=== PATIENT | female | born 1985 | race Two or more races ===

== ENCOUNTER → 2016-05-21 | Outpatient (CLI) | payer OTHER ==
[2015-08-13 17:50] VITALS: BP 88/49
[~2016-05-21] MED LIST: FERR325T72 PO
--- NOTE | 2016-05-21 09:22 | RAD ---
Indication survey. Obstetrical ultrasound examination was performed. No prior ultrasound is available associated with this . There is a single fetus in vertex presentation. Cervical length of 3.8 cm is normal. The developing placenta is predominantly posterior and fundal. The amount of amniotic fluid appears normal. There was a 4 chambered heart. heart rate of 123 was documented. The stomach and bladder were unremarkable. The kidneys spine and brain appeared unremarkable. No definite anomalies were seen. Biparietal diameter of 7.2 cm, head circumference of 26.7 cm, abdominal circumference of 24.6 cm and femoral length of 5.3 cm are compatible with a gestational age of approximately 28 weeks 5 days. By sonographic analysis the expected date of confinement is 08/08/2016. The estimated weight is approximately 2 lbs. 13 oz. IMPRESSION: Single viable intrauterine fetus of approximately 28 weeks 5 days gestation
== END | disposition home or self-care (01) ==
LOC: US 08:08
PROVIDERS: ATTEND Obstetrics & Gynecology
DX: O26.843 Uterine size-date discrepancy, third trimester (principal); Z3A.28 28 weeks gestation of pregnancy
CPT/HCPCS: 76805

== ENCOUNTER 2016-07-21 18:39 | Inpatient (IN) | payer OTHER ==
[~2016-07-21] VITALS: Ht 144.8 cm; Wt 51.3 kg
[2016-07-21] MEDS ORDERED: TERBUTALINE 1 MG/ML VIAL. SQ PRN (19:00)
[2016-07-21] MEDS ORDERED: diphenhydrAMINE HCL 25 MG CAPSULE PO PRN ×2 (19:00→19:15)
[2016-07-21] MEDS ORDERED: OXYTOCIN 30 UNIT/500 ML PREMIX 500 ML IV PRN (19:00)
[2016-07-21] MEDS ORDERED: IBUPROFEN 800 MG TABLET. PO PRN (19:00)
[2016-07-21] MEDS ORDERED: LIDOCAINE 1% PF 30 ML VIAL. INJ PRN (19:00)
[2016-07-21] MEDS ORDERED: ONDANSETRON PF 4 MG/2 ML VIAL. IV PRN (19:00)
[2016-07-21] MEDS ORDERED: CITRIC ACID/SODIUM CITRATE 30 ML SOLUTION. PO PRN (19:00)
[2016-07-21] MEDS ORDERED: MAG HYDROX/ALUMINUM HYD/SIMETH 30 ML ORAL.SUSP PO PRN (19:00)
[2016-07-21] MEDS ORDERED: ACETAMINOPHEN 325 MG TABLET. PO PRN (19:00)
[2016-07-21] MEDS ORDERED: 0.9 % SODIUM CHLORIDE 10 ML DISP.SYRIN. IV PRN (19:00)
[2016-07-21] MEDS ORDERED: DINOPROSTONE 10 MG SUPP.VAG VG ONE (19:30)
[2016-07-21 19:50] VITALS: BP 103/69
[2016-07-21] MEDS: IV RINGERS,LACTATED 1000ML 1,000 ML IV SCH (19:55)
[2016-07-21 20:01] LABS: HEMATOCRIT 31.4 % (36.0-47.0); HEMOGLOBIN 10.7 g/dL (12.0-15.5); RED BLOOD COUNT 3.58 x10^6/uL (3.50-5.40); RED CELL DISTRIBUTION WIDTH 12.8 % (11.5-14.5); WHITE BLOOD COUNT 9.7 x10^3/uL (4.0-11.0)
[2016-07-22] MEDS: fentaNYL PF VIAL 100 MCG/2 ML VIAL IV PRN ×2 (00:45→04:08)
[2016-07-22] MEDS: IV RINGERS,LACTATED 1000ML 1,000 ML IV SCH ×2 (01:39→08:55)
[2016-07-22] MEDS: OXYTOCIN 30 UNIT/500 ML PREMIX 500 ML IV PRN ×2 (06:12→16:24)
--- NOTE | 2016-07-22 08:43 | PDOC1 ---
OB - History Hx of Present Care: Good Care Ultrasounds: Normal mid trimester US Obstetrical Complications: None Medical Complications: None Past Family/Social History * Past Medical, Surgical, Family and Obstetric Histories reviewed from chart. Blood Type: Unknown Rubella: Immune RPR/VDRL: Negative GBS Status: Negative HBsAG: Negative OB - Chief Complaint & HPI Date of Admission: Date of Admission: July 21, 2016 at 18:39 Chief Complaint/History : 2 Para: 1 EGA: 40 Reason for admission: induction of labor Indication for induction: other (oligohydramnios) Admission Nurse Assessment Rev: Yes Problems: OB - Admission Exam Physical Exam Vitals: VS - Last 72 Hours, by Label Date Time Temp Pulse Resp B/P (MAP) Pulse Ox O2 Delivery O2 Flow Rate FiO2 07/22/16 04:45 16 Room Air 07/22/16 04:08 18 Room Air 07/22/16 00:45 18 Room Air 07/21/16 19:50 99.3 100 18 103/69 (80) Room Air 99.3 HEENT: Normal Heart: Regular Rate Lungs: Clear Abdomen: Gravid, Non tender, Soft Extremities: Edema Reflexes: Normal Cervical Dilatation: 1cm Effacement: 50% Station: -3 Membranes: Intact Heart Rate: Normal Accelerations: Accelerations Present Decelerations: No decelerations Contractions on Admission: None Text A: 40 wks IUP Oligohydramnios P: Admit for IOL cervidil, then pitocin in am. CLAUDIA LOVELACE Jr, MD July 22, 2016 08:43
[2016-07-22] MEDS ORDERED: IV RINGERS,LACTATED 1000ML 1,000 ML IV SCH (09:08)
[2016-07-22] MEDS ORDERED: fentaNYL PF VIAL 100 MCG/2 ML VIAL EPI PRN (09:15)
[2016-07-22] MEDS ORDERED: NALOXONE 0.4 MG/ML VIAL. IV PRN (09:15)
[2016-07-22] MEDS ORDERED: ONDANSETRON PF 4 MG/2 ML VIAL. IV PRN (09:15)
[2016-07-22] MEDS ORDERED: L&D EPIDURAL CASSETTE 100 ML EP PRN (09:15)
[2016-07-22] MEDS ORDERED: ePHEDrine PF IN SALINE 50 MG/5 ML DISP.SYRIN IV PRN (09:15)
[2016-07-22] MEDS ORDERED: ROPIVacaine 0.2% IN 0.9%NACL PF 40 MG/20 ML DISP.SYRIN. EPI PRN (09:15)
--- NOTE | 2016-07-22 15:57 | PDOC ---
VAGINAL DELIVERY DATE DATE: 07/22/16 TIME: 15:54 : 2 Para: 1 EGA: 40 VAGINAL DELIVERY: VTX VACCUM ASSISTED: Yes NUMBER OF PULLS 3 NUMBER OF POP OFFS none MAXIMUM PRESSURE 600 mmhg PLACENTA: Spontaneous SEX: Male WEIGHT Weight [ 3160 gm] Nuchal Cord: No Amniotic Fluid: Clear PAIN: Epidural EPISIOTOMY: No EXTENSION: No EBL 300 ml COMPLICATIONS none Signs of Intrauterine Infectio: None Shoulder Dystocia: Yes, Initial traction, Pita Maneuver, Suprapubic Pressure, Other (poor maternal pushing efforts.) Problems: LCAUDIA LOVELACE Jr, MD July 22, 2016 15:57
[2016-07-22] MEDS ORDERED: IBUPROFEN 800 MG TABLET. PO PRN (16:00)
[2016-07-22] MEDS ORDERED: HYDROCORTISONE 1% TOPICAL OINTMENT 30GM TUBE. TP PRN (16:00)
[2016-07-22] MEDS ORDERED: oxyCODONE/APAP 5/325 1 TAB TABLET PO PRN (16:00)
[2016-07-22] MEDS ORDERED: ZOLPIDEM 5 MG TABLET. PO PRN (16:00)
[2016-07-22] MEDS ORDERED: DOCUSATE SODIUM 100 MG CAPSULE. PO PRN (16:00)
[2016-07-22] MEDS ORDERED: diphenhydrAMINE HCL 25 MG CAPSULE PO PRN (16:00)
[2016-07-22] MEDS ORDERED: MAG HYDROX/ALUMINUM HYD/SIMETH 30 ML ORAL.SUSP PO PRN (16:00)
[2016-07-22] MEDS ORDERED: MAGNESIUM HYDROXIDE 2,400 MG/30 ML ORAL.SUSP. PO PRN (16:00)
[2016-07-22] MEDS ORDERED: SIMETHICONE 80 MG TAB.CHEW PO PRN (16:00)
[2016-07-22] MEDS ORDERED: 0.9 % SODIUM CHLORIDE 10 ML DISP.SYRIN. IV PRN (16:00)
[2016-07-22] MEDS ORDERED: MMR per PROTOCOL. MC PRN (16:00)
[2016-07-22] MEDS ORDERED: OXYTOCIN 30 UNIT/500 ML PREMIX 500 ML IV PRN (16:00)
[2016-07-22] MEDS ORDERED: PHENYLEPH/MINERAL OIL/PETROLAT RECTAL OINTMENT 28GM TUBE. RC PRN (16:00)
[2016-07-22] MEDS ORDERED: ACETAMINOPHEN 325 MG TABLET. PO PRN (16:00)
[2016-07-22] MEDS ORDERED: BENZOCAINE 20% TOPICAL AEROSOL SPRAY 57GM CAN. TP PRN (16:00)
[2016-07-22 20:11] VITALS: BP 116/53
[2016-07-22 23:10] VITALS: BP 80/50
[2016-07-23 04:56] LABS: BASO % 0 % (0-3); EOS % 2 % (0-3); HEMATOCRIT 27.1 % (36.0-47.0); HEMOGLOBIN 9.5 g/dL (12.0-15.5); LYMPH # 1.7 x10^3/uL (1.0-4.8); LYMPH % 12 % (24-48); MEAN CORPUSCULAR HEMOGLOBIN 30 pg (25-35); MEAN CORPUSCULAR HGB CONC 35 g/dL (31-37); MEAN CORPUSCULAR VOLUME 87 fL (79-100); MONO % 9 % (0-9); NEUT % 78 % (31-73); PLATELET COUNT 163 x10^3/uL (140-400); RED BLOOD COUNT 3.12 x10^6/uL (3.50-5.40); RED CELL DISTRIBUTION WIDTH 13.2 % (11.5-14.5); WHITE BLOOD COUNT 14.3 x10^3/uL (4.0-11.0)
[2016-07-23 06:09] VITALS: BP 87/57
[2016-07-23 07:37] LABS: RPR REFLEX Non Reactive (Non Reactive)
[2016-07-23] MEDS: FERROUS SULFATE 325 MG TABLET. PO SCH ×2 (08:00→17:00)
[2016-07-23 10:35] VITALS: BP 95/62
--- NOTE | 2016-07-23 12:49 | PDOC ---
OB Progress Note Date of Service 07/23/16 Time of Evaluation 1245 Notes Pt. feeling well. Pain controlled. Lochia minimal. Lab Laboratory Tests Test 07/21/16 19:45 07/23/16 04:10 White Blood Count 9.7 x10^3/uL (4.0-11.0) 14.3 x10^3/uL (4.0-11.0) Red Blood Count 3.58 x10^6/uL (3.50-5.40) 3.12 x10^6/uL (3.50-5.40) Hemoglobin 10.7 g/dL (12.0-15.5) 9.5 g/dL (12.0-15.5) Hematocrit 31.4 % (36.0-47.0) 27.1 % (36.0-47.0) Mean Corpuscular Volume 88 fL (79-100) 87 fL (79-100) Mean Corpuscular Hemoglobin 30 pg (25-35) 30 pg (25-35) Mean Corpuscular Hemoglobin Concent 34 g/dL (31-37) 35 g/dL (31-37) Red Cell Distribution Width 12.8 % (11.5-14.5) 13.2 % (11.5-14.5) Platelet Count 182 x10^3/uL (140-400) 163 x10^3/uL (140-400) RPR Titer Additional Testing Non reactive (Non Reactive) Neutrophils (%) (Auto) 78 % (31-73) Lymphocytes (%) (Auto) 12 % (24-48) Monocytes (%) (Auto) 9 % (0-9) Eosinophils (%) (Auto) 2 % (0-3) Basophils (%) (Auto) 0 % (0-3) Neutrophils # (Auto) 11.1 x10^3uL (1.8-7.7) Lymphocytes # (Auto) 1.7 x10^3/uL (1.0-4.8) Monocytes # (Auto) 1.2 x10^3/uL (0.0-1.1) Eosinophils # (Auto) 0.2 x10^3/uL (0.0-0.7) Basophils # (Auto) 0.0 x10^3/uL (0.0-0.2) Laboratory Tests Test 07/23/16 04:10 White Blood Count 14.3 x10^3/uL (4.0-11.0) Red Blood Count 3.12 x10^6/uL (3.50-5.40) Hemoglobin 9.5 g/dL (12.0-15.5) Hematocrit 27.1 % (36.0-47.0) Mean Corpuscular Volume 87 fL (79-100) Mean Corpuscular Hemoglobin 30 pg (25-35) Mean Corpuscular Hemoglobin Concent 35 g/dL (31-37) Red Cell Distribution Width 13.2 % (11.5-14.5) Platelet Count 163 x10^3/uL (140-400) Neutrophils (%) (Auto) 78 % (31-73) Lymphocytes (%) (Auto) 12 % (24-48) Monocytes (%) (Auto) 9 % (0-9) Eosinophils (%) (Auto) 2 % (0-3) Basophils (%) (Auto) 0 % (0-3) Neutrophils # (Auto) 11.1 x10^3uL (1.8-7.7) Lymphocytes # (Auto) 1.7 x10^3/uL (1.0-4.8) Monocytes # (Auto) 1.2 x10^3/uL (0.0-1.1) Eosinophils # (Auto) 0.2 x10^3/uL (0.0-0.7) Basophils # (Auto) 0.0 x10^3/uL (0.0-0.2) Medications Current Medications Sodium Chloride (Normal Saline Flush) 3 ml QSHIFT PRN IV AFTER MEDS AND BLOOD DRAWS; Start 07/21/16 at 19:00; Stop 07/23/16 at 07:51; Status DC Ringer's Solution 1,000 ml @ 125 mls/hr Q8H IV Last administered on 07/22/16 08:55; Start 07/21/16 at 18:59; Stop 07/23/16 at 07:51; Status DC Fentanyl Citrate (Fentanyl 2ml Vial) 100 mcg PRN Q30MIN PRN IV Severe pain Last administered on 07/22/16 04:08; Start 07/21/16 at 19:00; Stop 07/23/16 at 07:51; Status DC Acetaminophen (Tylenol) 650 mg PRN Q6HRS PRN PO MILD PAIN / TEMP; Start at 19:00; Stop 07/23/16 at 07:51; Status DC Ondansetron HCl (Zofran) 4 mg PRN Q4HRS PRN IV NAUSEA/VOMITING Last administered on 07/22/16 04:31; Start 07/21/16 at 19:00; Stop 07/22/16 at 20:31 ; Status DC Al Hydroxide/Mg Hydroxide (Mylanta Plus Xs) 30 ml PRN Q4HRS PRN PO HEARTBURN / GAS; Start 07/21/16 at 19:00 Citric Acid/ Sodium Citrate (Bicitra) 30 ml 1X PRN PRN PO DYSPEPSIA; Start at 19:00; Stop 07/22/16 at 18:59; Status DC Terbutaline Sulfate (Brethine) 0.25 mg 1X PRN PRN SQ SEE COMMENTS; Start at 19:00; Stop 07/22/16 at 18:59; Status DC Lidocaine HCl 30 ml 1X PRN PRN INJ SEE COMMENTS; Start 07/21/16 at 19:00; Stop 07/23/16 at 18:59 Oxytocin/Sodium Chloride 500 ml @ 0 mls/hr CONT PRN IV SEE I/O RECORD Last administered on 07/22/16 16:24; Start 07/21/16 at 19:00; Stop 07/23/16 at 07:51 ; Status DC Oxytocin/Sodium Chloride 500 ml @ 0 mls/hr CONT PRN PRN IV Post delivery bleeding; Start 07/21/16 at 19:00 Ibuprofen (Motrin) 800 mg PRN Q6HRS PRN PO PAIN Last administered on 07/22/16 19:59; Start 07/21/16 at 19:00; Stop 07/23/16 at 07:51; Status DC Dinoprostone (Cervidil) 10 mg 1X ONCE VG Last administered on 07/21/16 19:56 ; Start 07/21/16 at 19:30; Stop 07/21/16 at 19:31; Status DC Diphenhydramine HCl (Benadryl) 25 mg PRN Q6HRS PRN PO ITCHING Last administered on 07/21/16 23:22; Start 07/21/16 at 19:00; Stop 07/23/16 at 07:51 ; Status DC Diphenhydramine HCl (Benadryl) 50 mg PRN Q6HRS PRN PO ITCHING; Start 07/21/16 at 19:15 Ringer's Solution 1,000 ml @ 1,000 mls/hr Q1H IV Last administered on 10:34; Start 07/22/16 at 09:08; Stop 07/22/16 at 10:07; Status DC Ephedrine Sulfate 10 mg PRN Q2MIN PRN IV IF SBP<90; Start 07/22/16 at 09:15; Stop 07/23/16 at 07:51; Status DC Naloxone HCl (Narcan) 0.4 mg PRN Q1MIN PRN IV SEE COMMENTS; Start 07/22/16 at 09:15 Fentanyl Citrate (Fentanyl 2ml Vial) 100 mcg PRN 1X PRN EPI FOR ANESTHESIA; Start 07/22/16 at 09:15; Stop 07/23/16 at 07:51; Status DC Ropivacaine/ Fentanyl/NS 100 ml @ 14 mls/hr CONT PRN EP PAIN Last administered on 07/22/16 10:33; Start 07/22/16 at 09:15; Stop 07/23/16 at 07:51 ; Status DC Ondansetron HCl (Zofran) 4 mg PRN Q6HRS PRN IV NAUSEA/VOMITING; Start 07/22/16 at 09:15 Ropivacaine 40 mg PRN 1X PRN EPI SEE COMMENTS Last administered on 07/22/16 10 :24; Start 07/22/16 at 09:15; Stop 07/23/16 at 07:51; Status DC Sodium Chloride (Normal Saline Flush) 10 ml QSHIFT PRN IV AFTER MEDS AND BLOOD DRAWS; Start 07/22/16 at 16:00; Stop 07/23/16 at 07:51; Status DC Oxytocin/Sodium Chloride 500 ml @ 62.5 mls/hr CONT PRN IV SEE I/O RECORD; Start 07/22/16 at 16:00; Stop 07/22/16 at 23:59; Status DC Acetaminophen (Tylenol) 650 mg PRN Q6HRS PRN PO MILD PAIN / TEMP; Start at 16:00 Ibuprofen (Motrin) 800 mg PRN Q8HRS PRN PO INFLAMMATION/PAIN PREVENTION Last administered on 07/23/16t 08:19; Start 07/22/16 at 16:00 Docusate Sodium (Colace) 100 mg PRN BID PRN PO CONSTIPATION; Start 07/22/16 at 16:00 Magnesium Hydroxide (Milk Of Magnesia) 2,400 mg PRN DAILY PRN PO CONSTIPATION; Start 07/22/16 at 16:00 Al Hydroxide/Mg Hydroxide (Mylanta Plus Xs) 30 ml PRN Q4HRS PRN PO HEARTBURN / GAS; Start 07/22/16 at 16:00; Status Cancel Simethicone (Gas-X) 80 mg PRN AFTMEALHC PRN PO GAS / BLOATING; Start 07/22/16 at 16:00 Diphenhydramine HCl (Benadryl) 25 mg PRN Q6HRS PRN PO ITCHING; Start 07/22/16 at 16:00; Status Cancel Benzocaine (Americaine) 1 spray PRN QID PRN TP TOPICAL PAIN; Start 07/22/16 at 16:00 Phenyleph/Shark Oil/Min Oil/Petrol (Preparation H) 1 volodymyr PRN QID PRN RC RECTAL PAIN; Start 07/22/16 at 16:00 Hydrocortisone (Cortaid) 1 volodymyr PRN QID PRN TP PERINEAL PAIN; Start 07/22/16 at 16:00 Ferrous Sulfate (Feosol) 325 mg BIDWMEALS PO ; Start 07/23/16 at 08:00 Zolpidem Tartrate (Ambien) 5 mg PRN QHS PRN PO INSOMNIA, MAY REPEAT X1; Start 07/22/16 at 16:00 Info (Do NOT chart on this placeholder) 1 ea 1X PRN PRN MC SEE COMMENTS; Start 07/22/16 at 16:00 Info (Do NOT chart on this placeholder) 1 ea 1X PRN PRN MC SEE COMMENTS; Start 07/22/16 at 16:00 Oxycodone/ Acetaminophen (Percocet 5/325) 2 tab PRN Q4HRS PRN PO MODERATE PAIN , SEVERE PAIN; Start 07/22/16 at 16:00 Active Scripts Active Reported No Known Medications Prior To Admisstion (Info) Each 1 Each MC Exam Abd: soft, non tender, fundus firm Assessment PPD#1 s/p Plan of Care: Continue current Tx, Mgmt CLAUDIA LOVELACE Jr, MD July 23, 2016 12:49
[2016-07-23 14:35] VITALS: BP 94/57
[2016-07-23 18:05] VITALS: BP 98/59
[2016-07-23 21:32] VITALS: BP 103/80
[2016-07-24 04:48] VITALS: BP 87/50
[2016-07-24] MEDS: FERROUS SULFATE 325 MG TABLET. PO SCH (08:13)
[2016-07-24 11:20] VITALS: BP 101/64
--- NOTE | 2016-07-24 12:30 | DISCH ---
DISCHARGE INSTRUCTIONS Condition on Discharge Condition on Discharge: Stable Activity After Discharge Activity Instructions for Disc: Activity as tolerated Lifting Instructions after Dis: No heavy lifting Driving Instructions after Dis: Do not drive today Diet after Discharge Diet after Discharge: Regular Contacting the DRAntoine after DC Call your doctor for: Concerns you may have Follow-Up Follow up with: Dr. Tarango in 6 weeks. CLAUDIA TARANGO Jr, MD July 24, 2016 12:30
--- NOTE | 2016-07-24 12:30 | PDOC ---
OB Progress Note Date of Service 07/24/16 Time of Evaluation 1230 Notes Pt. feeling well. No complaints. Lab Laboratory Tests Test 07/23/16 04:10 White Blood Count 14.3 x10^3/uL (4.0-11.0) Red Blood Count 3.12 x10^6/uL (3.50-5.40) Hemoglobin 9.5 g/dL (12.0-15.5) Hematocrit 27.1 % (36.0-47.0) Mean Corpuscular Volume 87 fL (79-100) Mean Corpuscular Hemoglobin 30 pg (25-35) Mean Corpuscular Hemoglobin Concent 35 g/dL (31-37) Red Cell Distribution Width 13.2 % (11.5-14.5) Platelet Count 163 x10^3/uL (140-400) Neutrophils (%) (Auto) 78 % (31-73) Lymphocytes (%) (Auto) 12 % (24-48) Monocytes (%) (Auto) 9 % (0-9) Eosinophils (%) (Auto) 2 % (0-3) Basophils (%) (Auto) 0 % (0-3) Neutrophils # (Auto) 11.1 x10^3uL (1.8-7.7) Lymphocytes # (Auto) 1.7 x10^3/uL (1.0-4.8) Monocytes # (Auto) 1.2 x10^3/uL (0.0-1.1) Eosinophils # (Auto) 0.2 x10^3/uL (0.0-0.7) Basophils # (Auto) 0.0 x10^3/uL (0.0-0.2) Medications Current Medications Sodium Chloride (Normal Saline Flush) 3 ml QSHIFT PRN IV AFTER MEDS AND BLOOD DRAWS; Start 07/21/16 at 19:00; Stop 07/23/16 at 07:51; Status DC Ringer's Solution 1,000 ml @ 125 mls/hr Q8H IV Last administered on 07/22/16 08:55; Start 07/21/16 at 18:59; Stop 07/23/16 at 07:51; Status DC Fentanyl Citrate (Fentanyl 2ml Vial) 100 mcg PRN Q30MIN PRN IV Severe pain Last administered on 5/23/17at 04:08; Start 07/21/16 at 19:00; Stop 07/23/16 at 07:51; Status DC Acetaminophen (Tylenol) 650 mg PRN Q6HRS PRN PO MILD PAIN / TEMP; Start at 19:00; Stop 07/23/16 at 07:51; Status DC Ondansetron HCl (Zofran) 4 mg PRN Q4HRS PRN IV NAUSEA/VOMITING Last administered on 07/22/16 04:31; Start 07/21/16 at 19:00; Stop 07/22/16 at 20:31 ; Status DC Al Hydroxide/Mg Hydroxide (Mylanta Plus Xs) 30 ml PRN Q4HRS PRN PO HEARTBURN / GAS; Start 07/21/16 at 19:00 Citric Acid/ Sodium Citrate (Bicitra) 30 ml 1X PRN PRN PO DYSPEPSIA; Start at 19:00; Stop 07/22/16 at 18:59; Status DC Terbutaline Sulfate (Brethine) 0.25 mg 1X PRN PRN SQ SEE COMMENTS; Start at 19:00; Stop 07/22/16 at 18:59; Status DC Lidocaine HCl 30 ml 1X PRN PRN INJ SEE COMMENTS; Start 07/21/16 at 19:00; Stop 07/23/16 at 18:59; Status DC Oxytocin/Sodium Chloride 500 ml @ 0 mls/hr CONT PRN IV SEE I/O RECORD Last administered on 07/22/16 16:24; Start 07/21/16 at 19:00; Stop 07/23/16 at 07:51 ; Status DC Oxytocin/Sodium Chloride 500 ml @ 0 mls/hr CONT PRN PRN IV Post delivery bleeding; Start 07/21/16 at 19:00 Ibuprofen (Motrin) 800 mg PRN Q6HRS PRN PO PAIN Last administered on 07/22/16 19:59; Start 07/21/16 at 19:00; Stop 07/23/16 at 07:51; Status DC Dinoprostone (Cervidil) 10 mg 1X ONCE VG Last administered on 07/21/16 19:56 ; Start 07/21/16 at 19:30; Stop 07/21/16 at 19:31; Status DC Diphenhydramine HCl (Benadryl) 25 mg PRN Q6HRS PRN PO ITCHING Last administered on 07/21/16 23:22; Start 07/21/16 at 19:00; Stop 07/23/16 at 07:51 ; Status DC Diphenhydramine HCl (Benadryl) 50 mg PRN Q6HRS PRN PO ITCHING; Start 07/21/16 at 19:15 Ringer's Solution 1,000 ml @ 1,000 mls/hr Q1H IV Last administered on 10:34; Start 07/22/16 at 09:08; Stop 07/22/16 at 10:07; Status DC Ephedrine Sulfate 10 mg PRN Q2MIN PRN IV IF SBP<90; Start 07/22/16 at 09:15; Stop 07/23/16 at 07:51; Status DC Naloxone HCl (Narcan) 0.4 mg PRN Q1MIN PRN IV SEE COMMENTS; Start 07/22/16 at 09:15 Fentanyl Citrate (Fentanyl 2ml Vial) 100 mcg PRN 1X PRN EPI FOR ANESTHESIA; Start 07/22/16 at 09:15; Stop 07/23/16 at 07:51; Status DC Ropivacaine/ Fentanyl/NS 100 ml @ 14 mls/hr CONT PRN EP PAIN Last administered on 07/22/16 10:33; Start 07/22/16 at 09:15; Stop 07/23/16 at 07:51 ; Status DC Ondansetron HCl (Zofran) 4 mg PRN Q6HRS PRN IV NAUSEA/VOMITING; Start 07/22/16 at 09:15 Ropivacaine 40 mg PRN 1X PRN EPI SEE COMMENTS Last administered on 07/22/16 10 :24; Start 07/22/16 at 09:15; Stop 07/23/16 at 07:51; Status DC Sodium Chloride (Normal Saline Flush) 10 ml QSHIFT PRN IV AFTER MEDS AND BLOOD DRAWS; Start 07/22/16 at 16:00; Stop 07/23/16 at 07:51; Status DC Oxytocin/Sodium Chloride 500 ml @ 62.5 mls/hr CONT PRN IV SEE I/O RECORD; Start 07/22/16 at 16:00; Stop 07/22/16 at 23:59; Status DC Acetaminophen (Tylenol) 650 mg PRN Q6HRS PRN PO MILD PAIN / TEMP Last administered on 07/23/16 14:39; Start 07/22/16 at 16:00 Ibuprofen (Motrin) 800 mg PRN Q8HRS PRN PO INFLAMMATION/PAIN PREVENTION Last administered on 07/23/16 08:19; Start 07/22/16 at 16:00 Docusate Sodium (Colace) 100 mg PRN BID PRN PO CONSTIPATION Last administered on 07/24/16 08:14; Start 07/22/16 at 16:00 Magnesium Hydroxide (Milk Of Magnesia) 2,400 mg PRN DAILY PRN PO CONSTIPATION; Start 07/22/16 at 16:00 Al Hydroxide/Mg Hydroxide (Mylanta Plus Xs) 30 ml PRN Q4HRS PRN PO HEARTBURN / GAS; Start 07/22/16 at 16:00; Status Cancel Simethicone (Gas-X) 80 mg PRN AFTMEALHC PRN PO GAS / BLOATING; Start 07/22/16 at 16:00 Diphenhydramine HCl (Benadryl) 25 mg PRN Q6HRS PRN PO ITCHING; Start 07/22/16 at 16:00; Status Cancel Benzocaine (Americaine) 1 spray PRN QID PRN TP TOPICAL PAIN; Start 07/22/16 at 16:00 Phenyleph/Shark Oil/Min Oil/Petrol (Preparation H) 1 volodymyr PRN QID PRN RC RECTAL PAIN; Start 07/22/16 at 16:00 Hydrocortisone (Cortaid) 1 volodymyr PRN QID PRN TP PERINEAL PAIN; Start 07/22/16 at 16:00 Ferrous Sulfate (Feosol) 325 mg BIDWMEALS PO Last administered on 07/24/16 08: 13; Start 07/23/16 at 08:00 Zolpidem Tartrate (Ambien) 5 mg PRN QHS PRN PO INSOMNIA, MAY REPEAT X1; Start 07/22/16 at 16:00 Info (Do NOT chart on this placeholder) 1 ea 1X PRN PRN MC SEE COMMENTS; Start 07/22/16 at 16:00 Info (Do NOT chart on this placeholder) 1 ea 1X PRN PRN MC SEE COMMENTS; Start 07/22/16 at 16:00 Oxycodone/ Acetaminophen (Percocet 5/325) 2 tab PRN Q4HRS PRN PO MODERATE PAIN , SEVERE PAIN; Start 07/22/16 at 16:00 Active Scripts Active Reported No Known Medications Prior To Admisstion (Info) Each 1 Each MC Exam Abd: soft, non tender, fundus firm Assessment PPD#2 s/p Plan of Care: See new orders (D/c home.) CLAUDIA LOVELACE Jr, MD July 24, 2016 12:30
[2016-07-24] MEDS ORDERED: IBUP-1060 PO (12:31)
[2016-07-24 15:00] VITALS: BP 99/68
== END 2016-07-24 15:35 | disposition home or self-care (01) | DRG 775 ==
LOC: 3 SO LND 18:39 → OBSVTOIN 18:39 → 3 NORTH 07-22 19:47
PROVIDERS: ADMIT Obstetrics & Gynecology; ATTEND Obstetrics & Gynecology
PROC: 10D07Z6 Extraction of Products of Conception, Vacuum, Via Natural or Artificial Opening (ICD-10-PCS; principal; 2016-07-22)
PROC: 3E0S3CZ (ICD-10-PCS; 2016-07-22)
PROC: 00HU33Z Insertion of Infusion Device into Spinal Canal, Percutaneous Approach (ICD-10-PCS; 2016-07-22)
DX: O66.0 Obstructed labor due to shoulder dystocia (principal); O41.00X0 Oligohydramnios, unspecified trimester, not applicable or unspecified; Z37.0 Single live birth; Z3A.40 40 weeks gestation of pregnancy
CPT/HCPCS: 36415; 85027; 86593; 86850; 86900; 86901; G0378; J2405; J2590; J2795; J3010; J7120; Q0163